=== PATIENT | male | born 1970 | race Caucasian/White ===

== ENCOUNTER 2018-11-29 22:02 | Emergency (ER) | payer OTHER ==
[~2018-11-29] VITALS: Ht 172.7 cm; Wt 102.1 kg
[2018-11-29] MEDS ORDERED: PIOG15 PO (22:44)
[2018-11-29] MEDS ORDERED: AMLO10 PO (22:44)
[2018-11-29] MEDS ORDERED: Cabergoline0.5 MG PO (22:44)
[2018-11-29] MEDS ORDERED: Metformin HCl1000 MG PO (22:44)
[2018-11-29] MEDS ORDERED: Prozac20 MG PO (22:45)
[2018-11-29] MEDS ORDERED: ROSUVASTATIN CA40 MG PO (22:45)
== END 2018-11-29 23:32 | disposition home or self-care (01) ==
LOC: ER 22:02
DX: S61.012A Laceration without foreign body of left thumb without damage to nail, initial encounter (principal); I10 Essential (primary) hypertension; Z79.899 Other long term (current) drug therapy; W45.8XXA Other foreign body or object entering through skin, initial encounter
CPT/HCPCS: 90471; 90714; 99282